=== PATIENT | female | born 1960 | race Caucasian/White ===

== ENCOUNTER 2017-08-16 10:28 | Emergency (ER) | payer BC, SELFPAY ==
[2017-08-16 10:45] VITALS: BP 157/96; PULSE 108; RESP 20; TEMP 37.3; O2SAT 94; BMI 28.1
[2017-08-16 10:48] LABS: UTC Influenza A Antigen Positive (Negative); UTC Influenza B Antigen Negative (Negative)
--- NOTE | 2017-08-16 11:26 | HMH.EDUTC ---
[facility] [place] Disposition Clinical Impression: Influenza A Disposition: Home, Self-Care Condition on Discharge: Good Instructions: DI for Influenza -- Adult Additional Instructions: * Start Tamiflu today if you are going to take it. Discussed risks, side effects, risk of allergic reaction, and possible benefits. We even discussed hallucinations and uncontrollable fevers. Due to your DM and HTN you still want tamiflu. Encouraged to monitor closely.. * Lots of rest * Increase fluids, water, gatorade, powerade, pedialyte if infant/toddler/child * Monitor Temp. Tylenol every 4 hours as needed no more then 5 times a day or 4000mg in 24 hours and/or ibuprofen every 6 hours as needed no more then 3200mg in 24 hours (as long as your primary care doctor has told you that it is ok to take both) for fever/aches/pain. ER if fever no less than 101 despite tylenol and Ibuprofen * OTC cold/flu/sinus medication is ok but pick one. The corcidin HBP products would be the best choice for you based on your history. Other medications have decongestants that will elevate your blood pressure. Do not take multiple different ones as they have similar ingredients and you can overdose on cold medication. * You (or your child) are contagious until no fever, aches, chills x 24 hours without medication for symptoms. Prescriptions: Oseltamivir Phosphate [Tamiflu 75mg Capsule] 75 mg PO BID #10 cap Referrals: Provider,Referral, [Primary Care Provider] - (IMMEDIATELY for new or worsening symptoms, improvement followed by suddenly feeling worse OR no noticeable improvement over the next 48-72 hours. 911 for difficulty breathing ) Time of Disposition: 11:40 Medical Decision Making Vital Signs: 08/16/17 10:45 08/16/17 11:41 Temperature 99.1 F 98 F Temperature Source Temporal Artery Scan Pulse Rate 67 Pulse Rate [Right Radial] 108 H Respiratory Rate 20 20 Blood Pressure 137/80 Blood Pressure [Right Arm] 157/96 Blood Pressure Mean [Right Arm] 116 Blood Pressure Source [Right Arm] Automatic Cuff Blood Pressure Position [Right Arm] Sitting 02 Sat by Pulse Oximetry 94 L Oxygen Delivery Method Room Air - Lab Data Lab results reviewed: Yes: I reviewed the patient's lab results. Lab Results 08/16/17 10:37: Influenza Type A Ag Positive A, Influenza Type B Ag Negative - Lit Inquiry Pt receiving controlled substance: No [facility] [place] HPI - General Stated complaint: Cough Congestion achey Time Seen by Provider: 08/16/17 11:26 Mode of Arrival: Ambulatory Source of Information: Patient Limitations: No Limitations Description of Symptoms (Recalled from Triage Doc. by RN): PT C/O ACHES,CHILLS AND CONGESTION. PT TOOK MUCINEX LAST AROUND 1000. HEENT Symptoms (Recalled from RN notes): Yes (CONGESTION) Resp Symptoms (Recalled from RN notes): No Skin Symptoms (Recalled from RN notes): No MS Symptoms (Recalled from RN notes): No Functional Status (Recalled from RN notes): NA - History of Present Illness Provider Complaint: c/o nonprod cough, aches, chills, nasal congestion, rhinorrhea, head pressure all starting suddenly last night and worsening throughout the day. No known sick contacts but no telling at work. Everyone comes to work sick at [facility]. Mucinex helps for a very limited time . Hasn't taken or tried anything else. Hx of HTN and DM. Reports she is aware of sick day management and is monitoring it. - Related Data Home Medications Medication Instructions Recorded Confirmed Fenofibrate Nanocrystallized 145 mg PO DAILY 08/16/17 08/16/17 [Fenofibrate] Levothyroxine Sodium 112 mcg PO DAILY 08/16/17 08/16/17 [Levothyroxine 112mcg (0.112mg) Tab] Lisinopril [Lisinopril 10mg Tab] 10 mg PO DAILY 08/16/17 08/16/17 Metformin HCl [Metformin HCl] 1,000 mg PO DAILY 08/16/17 08/16/17 Simvastatin 5 mg PO DAILY 08/16/17 08/16/17 Previous Rx's Medication Instructions Recorded Oseltamivir Phosphate [Tamiflu 75 mg PO BID #10 cap 08/16/17
--- NOTE | 2017-08-16 11:37 | ED_ITS ---
[facility] – [place], [place] Disposition Clinical Impression: Influenza A Disposition: Home, Self-Care Condition on Discharge: Good Instructions: DI for Influenza -- Adult Additional Instructions: * Start Tamiflu today if you are going to take it. Discussed risks, side effects , risk of allergic reaction, and possible benefits. We even discussed hallucinations and uncontrollable fevers. Due to your DM and HTN you still want tamiflu. Encouraged to monitor closely.. * Lots of rest * Increase fluids, water, gatorade, powerade, pedialyte if /toddler/child * Monitor Temp. Tylenol every 4 hours as needed no more then 5 times a day or 4000mg in 24 hours and/or ibuprofen every 6 hours as needed no more then 3200mg in 24 hours (as long as your primary care doctor has told you that it is ok to take both) for fever/aches/pain. ER if fever no less than 101 despite tylenol and Ibuprofen * OTC cold/flu/sinus medication is ok but pick one. The corcidin HBP products would be the best choice for you based on your history. Other medications have decongestants that will elevate your blood pressure. Do not take multiple different ones as they have similar ingredients and you can overdose on cold medication. * You (or your child) are contagious until no fever, aches, chills x 24 hours without medication for symptoms. Prescriptions: Oseltamivir Phosphate [Tamiflu 75mg Capsule] 75 mg PO BID #10 cap Referrals: Provider,Referral, [Primary Care Provider] - (IMMEDIATELY for new or worsening symptoms, improvement followed by suddenly feeling worse OR no noticeable improvement over the next 48-72 hours. 911 for difficulty breathing ) Time of Disposition: 11:40 Medical Decision Making Vital Signs: 08/16/17 10:45 08/16/17 11:41 Temperature 99.1 F 98 F Temperature Source Temporal Artery Scan Pulse Rate 67 Pulse Rate [Right Radial] 108 H Respiratory Rate 20 20 Blood Pressure 137/80 Blood Pressure [Right Arm] 157/96 Blood Pressure Mean [Right Arm] 116 Blood Pressure Source [Right Arm] Automatic Cuff Blood Pressure Position [Right Arm] Sitting 02 Sat by Pulse Oximetry 94 L Oxygen Delivery Method Room Air - Lab Data Lab results reviewed: Yes: I reviewed the patient's lab results. Lab Results 08/16/17 10:37: Influenza Type A Ag Positive A, Influenza Type B Ag Negative - Lit Inquiry Pt receiving controlled substance: No [facility] [place], [place] HPI - General Stated complaint: Cough Congestion achey Time Seen by Provider: 08/16/17 11:26 Mode of Arrival: Ambulatory Source of Information: Patient Limitations: No Limitations Description of Symptoms (Recalled from Triage Doc. by RN): PT C/O ACHES,CHILLS AND CONGESTION. PT TOOK MUCINEX LAST AROUND 1000. HEENT Symptoms (Recalled from RN notes): Yes (CONGESTION) Resp Symptoms (Recalled from RN notes): No Skin Symptoms (Recalled from RN notes): No MS Symptoms (Recalled from RN notes): No Functional Status (Recalled from RN notes): NA - History of Present Illness Provider Complaint: c/o nonprod cough, aches, chills, nasal congestion, rhinorrhea, head pressure all starting suddenly last night and worsening throughout the day. No known sick contacts but no telling at work. Everyone comes to work sick at [facility]. Mucinex helps for a very limited time . Hasn't taken or tried anything else. Hx of HTN and DM. Reports she is aware of sick day management and is monitoring it. - Related Data Home Medications Medication Instructions Recor
[2017-08-16 11:41] VITALS: BP 137/80; PULSE 67; RESP 20; TEMP 36.6; O2SAT 99
== END 2017-08-16 11:43 | disposition home or self-care (01) ==
PROVIDERS: Emergency Provider Nurse Practitioner Family
DX: J09.X2 Influenza due to identified novel influenza A virus with other respiratory manifestations (principal)
CPT/HCPCS: 87804; 99201

== ENCOUNTER → 2021-05-17 16:52 | Outpatient (CLI) | payer BC, SELFPAY | PROVIDERS: Visit Provider Obstetrics & Gynecology Gynecology | DX: Z01.818 Encounter for other preprocedural examination (principal); Z11.52 Encounter for screening for COVID-19 | CPT/HCPCS: C9803; U0003; U0005 ==

== ENCOUNTER 2024-01-12 20:26 | Emergency (ER) | payer BC, SELFPAY ==
[2024-01-12 20:41] VITALS: BP 129/71; PULSE 81; RESP 15; TEMP 36.7; O2SAT 100; BMI 26.6
--- NOTE | 2024-01-12 20:42 | XR_ITS ---
PROCEDURE INFORMATION: Exam: XR Right Foot Exam date and time: 01/12/2024 8:53 PM Age: 63 years old Clinical indication: Pain; Foot; Right; Additional info: Non traumatic pain TECHNIQUE: Imaging protocol: Radiologic exam of the right foot. Views: 3 or more views. COMPARISON: No relevant prior studies available. FINDINGS: Bones/joints: Normal. No acute fracture identified. Soft tissues: Normal. IMPRESSION: No acute findings.
--- NOTE | 2024-01-12 20:45 | ED_ITS ---
Discharge Plan Disposition Patient Disposition: Home, Self-Care Prescriptions Prescriptions: No Action simvastatin 5 MG Tablet 5 mg PO DAILY metformin 1,000 MG Tablet 1,000 mg PO DAILY Patient Comments: lisinopril 10 MG Tablet 10 mg PO DAILY levothyroxine 112 MCG Tablet 112 mcg PO DAILY fenofibrate nanocrystallized 145MG Tablet 145 mg PO DAILY Patient Comments: Referrals Follow up/Referrals: Karla Gutierrez [Primary Care Provider] - See instructions Linette Hancock DPM [Staff Physician] - See instructions Activity Restrictions/Add. Instructions Additional Instructions/Restrictions: No evidence of an emergent medical condition such as acute arterial insufficiency, fracture dislocation, septic joint etc. No definitive answer as to what is causing her symptoms today and there is some diagnostic uncertainty I recommend you follow-up with our [employer] english teacher Dr. Rollins for further evaluation and management. Please return with any high fevers spreading redness or other concerns. Clinical Impressions Clinical Impression: Acute pain of right foot, Peripheral neuropathy Discharge ED Provider: Antonia Fonseca General Adult HPI General Chief complaint: Extremity Problem,Nontraumatic Stated complaint: right foot pain, no accident Time Seen by Provider: 01/12/24 20:34 History of Present Illness HPI narrative: Patient is a 63-year-old female presenting today with sudden and severe right foot pain. She has a history of diabetes and has had some foot tingling in the past but has never been diagnosed with peripheral neuropathy. She denies any significant trauma today. Denies any changes in temperature or sensation of her foot. No swelling. From historical standpoint denies any significant swelling or erythema. No fevers or any other symptoms. Just has had significant difficulty time walking after the sudden component or onset of the symptoms. Pain is located on the dorsal aspect of the right foot. Related Data Home Medications Medication Instructions Recorded Confirmed fenofibrate nanocrystallized 145 145 mg PO DAILY Cholesterol 08/16/17 08/16/17 mg tablet levothyroxine 112 mcg tablet 112 mcg PO DAILY THYROID 08/16/17 08/16/17 lisinopril 10 mg tablet 10 mg PO DAILY BLOOD PRESSURE 08/16/17 08/16/17 metformin 1,000 mg tablet 1,000 mg PO DAILY Diabetes 08/16/17 08/16/17 simvastatin 5 mg tablet 5 mg PO DAILY Cholesterol 08/16/17 08/16/17 Allergies Allergy/AdvReac Type Severity Reaction Status Date / Time No Known Allergies Allergy Verified 08/16/17 10:52 [facility] Disclaimer: The information contained in this section may have been updated after the patient was seen, as this information can be updated by other users. Social History Smoking Status: Current every day smoker alcohol intake: never current occupational status: other Travel in the last 8 weeks: None ROS Obtained: Yes All systems reviewed & no additional complaints except as documented Physical Exam General General appearance: alert and in no apparent distress Respiratory Respiratory exam: Present normal lung sounds bilaterally Cardiovascular Cardiovascular exam: Present regular rate Extremities Exam Extremities exam: Present other (Right foot there is mild erythema and swelling over the dorsal aspect of the foot with exquisite tenderness in the midfoot warm extremities bilaterally 2+ DP and PT pulses) Neurological Exam Neurological exam: Present other (Diminished 2-point discrimination in a stocking distribution bilateral lower extremities) Medical Decision Making Lit Inquiry Pt receiving controlled substance: No Vital Signs: 01/12/24 20:41 Temperature 98.1 F Temperature Source Oral Pulse Rate [Right Brachial] 81 Respiratory Rate 15 Blood Pressure [Right Arm] 129/71 Blood Pressure Mean [Right Arm] 90 Blood Pressure Source [Right Arm] Automatic Cuff Blood Pressure Position [Right Arm] Sitting 02 Sat by Pulse Oximetry 100 Oxygen Delivery Method Room Air Lab Data Lab results reviewed: Yes I reviewed the patient's lab results. Lab Results 01/12/24 20:51: WBC 13.2 H, RBC 5.16, Hgb 15.2, Hct 45.0, MCV 87.0, MCH 29.4, MCHC 33.8, RDW 14.9, Plt Count 304, MPV 8.5, Neut % (Auto) 77.5, Lymph % (Auto) 15.1, [place] % (Auto) 5.3, Eos % (Auto) 0.9, Baso % (Auto) 1.3, Neut # (Auto) 10.2 H, Lymph # (Auto) 2.0, [place] # (Auto) 0.7, Eos # (Auto) 0.1, Baso # (Auto) 0.2, ESR 12, Sodium 139, Potassium 4.3, Chloride 105, Carbon Dioxide 21 L, Anion Gap 17.3 H, BUN 17, Creatinine 0.80, Estimated Creat Clear 71, Estimated GFR 73, Est GFR ( Amer) 88, Glucose 322 H, Calcium 10.2, Total Bilirubin 0.4, AST 47 H, ALT 55, Alkaline Phosphatase 79, C-Reactive Protein 2.7, Total Protein 7.4, Albumin 4.6, Globulin 2.8, Albumin/Globulin Ratio 1.6 01/12/24 20:51 01/12/24 20:51 Orders (Tests/Meds): ED MEDICATIONS Discontinued Medications Generic Name Dose Route Start Last Admin Trade Name Rickq PRN Reason Stop Dose Admin Ketorolac Tromethamine 15 mg 01/12/24 20:42 01/12/24 20:54 Ketorolac 30mg/Ml Vial IV 01/12/24 20:43 15 mg ONCE ONE Administration ORDERS Category Date Time Status Foot XR right minimum 3 views [XR foot RT min 3V] Stat Exams 01/12/24 20:42 Taken CBC w/Auto Diff [Complete Blood Count Auto Diff] Stat Lab 01/12/24 20:51 Completed CMP [Comprehensive Metabolic Panel] Stat Lab 01/12/24 20:51 Completed CRP [C-Reactive Protein] Stat Lab 01/12/24 20:51 Completed ESR [Erythrocyte Sedimentation Rate] Stat Lab 01/12/24 20:51 Completed Medical Decision Narrative: 63-year-old female presenting today with painful and mildly erythematous right foot but no significant trauma. She is exquisitely tender over the midfoot. Differential includes gout inflammatory arthritis vascular pathology septic joint sprain. Given the fact that this was sudden onset is highly unlikely to be an infectious process or chronically inflammatory process such as gout. I suspect she has peripheral neuropathy given the fact that she has diminished 2- point discrimination and she had sudden pain she likely injured her foot without knowledge of where her foot was in space. X-rays pending as well as inflammatory markers and basic blood work. Toradol has been administered will reassess. X-ray returned which I first interpreted shows no fractures or dislocations Labs returned which are largely unremarkable she is hyperglycemic has a CRP which is within normal limits. It is exceedingly unlikely this is a severe inflammatory or infectious process. On reassessment her foot is now no longer erythematous pulses remain normal neurovascular exam aside from the 2 point discrimination is normal. Diagnostic uncertainty remains for what exactly is causing her symptoms but this is not consistent with acute emergent medical condition such as a septic joint fracture dislocation or acute vascular insufficiency. I advised that she follow-up outpatient with our middle school english teacher if she continues to have nonspecific foot pain. Supportive care and return precautions emphasized. Critical Care Critical Care Time Critical Care Time: No
[2024-01-12] MEDS: KETOROLAC 30MG/ML VIAL 15 MG IV (20:54)
[2024-01-12 21:00] LABS: Basophils # 0.2 K/mm3 (0-0.2); Basophils % 1.3 % (0.1-2.0); Eosinophils # 0.1 K/mm3 (0.0-0.4); Eosinophils % 0.9 % (0.1-12.0); Hemoglobin 15.2 g/dL (12.2-16.2); Lymphocytes % 15.1 % (10-50); Mean Corpuscular HGB Conc 33.8 g/dL (31.8-35.4); Mean Corpuscular Hemoglobin 29.4 pg (27.0-31.2); Mean Platelet Volume 8.5 fl (7.4-10.4); Monocytes # 0.7 K/mm3 (0.1-1.0); Monocytes % 5.3 % (1.7-9.3); Neutrophils # 10.2 K/mm3 (1.8-7.8); Neutrophils % 77.5 % (37.0-80.0); Platelet Count 304 K/mm3 (142-424); Red Blood Count 5.16 M/mm3 (4.20-5.40); Red Cell Distribution Width 14.9 % (11.5-17.5); White Blood Count 13.2 K/mm3 (4.8-10.8)
[2024-01-12 21:17] LABS: Chloride 105 mmol/L (98-107); Potassium 4.3 mmoL/L (3.5-5.1); Sodium 139 mmol/L (136-145)
[2024-01-12 21:19] LABS: Alanine Aminotransferase 55 U/L (12-78); Aspartate Amino Transferase 47 U/L (14-36); Blood Urea Nitrogen 17 mg/dl (7-17); Creatinine Clearance Estimated 71 mL/min (50-200); Estimated Glomerular Filt Rate 73 ml/min (>60); GFR (African American) 88 ML/MIN (>60)
[2024-01-12 21:20] LABS: Albumin Level 4.6 g/dl (3.5-5.0); Albumin/Globulin Ratio 1.6 (1.1-1.8); Alkaline Phosphatase 79 U/L (38-126); Anion Gap 17.3 mEq/L (5-15); Bilirubin,Total 0.4 mg/dl (0.2-1.3); Calcium 10.2 mg/dl (8.4-10.2); Carbon Dioxide 21 mmol/L (22.0-30.0); Globulin 2.8 g/dL (1.3-3.2); Glucose 322 mg/dl (74-100); Total Protein,Serum 7.4 g/dl (6.3-8.2)
[2024-01-12 21:25] LABS: C-Reactive Protein 2.7 mg/L (0-4)
[2024-01-12 21:46] LABS: Erythrocyte Sedimentation Rate 12 mm/hr (0-30)
[2024-01-12 21:54] VITALS: BP 129/71; PULSE 83; RESP 16; TEMP 36.7; O2SAT 98
== END 2024-01-12 22:05 | disposition home or self-care (01) ==
PROVIDERS: Emergency Provider Student in an Organized Health Care Education/Training Program; PCP Family Medicine
DX: M79.671 Pain in right foot (principal); E11.40 Type 2 diabetes mellitus with diabetic neuropathy, unspecified; E11.65 Type 2 diabetes mellitus with hyperglycemia; F17.210 Nicotine dependence, cigarettes, uncomplicated; Z79.84 Long term (current) use of oral hypoglycemic drugs
CPT/HCPCS: 73630; 80053; 85025; 85651; 86140; 96374; 99284; J1885